=== PATIENT | female | born 1975 | race Caucasian/White ===

== ENCOUNTER → 2017-08-08 | Outpatient (CLI) | payer MEDICARE, OTHER ==
[~2017-08-08] MED LIST: DEPA250T2 PO; LEVO50TA4 PO; LEXA10TA PO; MELO15TA20 PO; RISP4TAB41 PO
--- NOTE | 2017-08-08 12:03 | RADRPT ---
EXAM DATE/TIME: 08/08/2017 11:26 [facility] COMPARISON: No previous studies available for comparison. INDICATIONS : Left foot pain, injured 2 1/2 mos ago MEDICAL HISTORY : fell 2 1/2 mos ago, hurt left foot SURGICAL HISTORY : None. ENCOUNTER: Initial ACUITY: 2 months PAIN SCORE: 7/10 LOCATION: Left foot FINDINGS: Three view examination of the left foot demonstrates no soft tissue swelling, dislocation, or fractur e. The tarsal bones appear intact. The interphalangeal and metatarsophalangeal joints are intact. The calcaneus is intact. Bony mineralization is normal. CONCLUSION: Unremarkable examination of the left foot. Deandre Venegas MD on August 08, 2017 at 12:01 Board Certified Radiologist. This report was verified electronically.
--- NOTE | 2017-08-08 12:03 | RADRPT ---
EXAM DATE/TIME: 08/08/2017 11:24 [facility] COMPARISON: No previous studies available for comparison. INDICATIONS : ordered for a comparison to left. MEDICAL HISTORY : None. SURGICAL HISTORY : None. ENCOUNTER: Initial ACUITY: 1 day PAIN SCORE: 0/10 LOCATION: Right foot FINDINGS: Three view examination of the right foot demonstrates no soft tissue swelling, dislocation, or fractu re except for small bone fragment dorsal to the base of the first metatarsal bone I suspect an old in jury. The tarsal bones appear intact. The interphalangeal and metatarsophalangeal joints are intac t. The calcaneus is intact. Bony mineralization is normal. CONCLUSION: Unremarkable examination of the right foot except for small bone fragment dorsal to the base of the f irst metatarsal bone I suspect an old injury. Deandre Venegas MD on August 08, 2017 at 12:00 Board Certified Radiologist. This report was verified electronically.
== END ==
LOC: HRAD 11:07
PROVIDERS: ATTEND Podiatrist Primary Podiatric Medicine
DX: S92.255A Nondisplaced fracture of navicular [scaphoid] of left foot, initial encounter for closed fracture (principal)
CPT/HCPCS: 73630

== ENCOUNTER 2017-08-27 13:12 | Emergency (ER) | payer SELFPAY ==
[~2017-08-27] VITALS: Ht 170.2 cm; Wt 80.0 kg
[2017-08-27 13:36] VITALS: BP 99/62; PULSE 76; RESP 18; TEMP 98.4; O2SAT 99
--- NOTE | 2017-08-27 13:39 | PD ---
HPI Chief Complaint: Fall Time Seen by Provider: 13:34 Travel History International Travel<30 days: No Contact w/Intl Traveler<30days: No Traveled to known affect area: No History of Present Illness HPI Examined in the presence of a female nurse. This is a 42-year-old female who presents for evaluation after mechanical fall. She reports a prior to arrival she slipped in the shower and fell, landing on her buttocks. She is complaining of pain in her tailbone which is aching and worse with palpation or sitting. She denies any headache or head injury, neck pain, mid or upper back pain, chest pain or shortness of breath, abdominal pain, nausea or vomiting, numbness or tingling or weakness in extremities. She has no other complaints at this time. [facility] Past Medical History Hypertension: Yes Social History Tobacco Use: Yes Allergies-Medications (Allergen,Severity, Reaction): Coded Allergies: No Known Allergies (Unverified , 08/09/17) Reported Meds & Prescriptions Reported Meds & Active Scripts Active Baclofen 10 Mg Tab 10 Mg PO Q8HR 5 Days Reported Diovan (Valsartan) 160 Mg Tab 160 Mg PO DAILY Review of Systems Except as stated in HPI: all other systems reviewed are Neg Physical Exam Narrative GENERAL: Well-developed well-nourished female in no acute distress cervical collar in place laying on backboard. The patient was log rolled off the backboard using spinal precautions. SKIN: Warm and dry. No open wounds, no bruising or soft tissue swelling HEAD: Atraumatic. Normocephalic. EYES: Pupils equal and round. No scleral icterus. No injection or drainage. ENT: No nasal bleeding or discharge. Mucous membranes pink and moist. NECK: Trachea midline. No JVD. CARDIOVASCULAR: Regular rate and rhythm. No murmur appreciated. RESPIRATORY: No accessory muscle use. Clear to auscultation. Breath sounds equal bilaterally. GASTROINTESTINAL: Abdomen soft, non-tender, nondistended. Hepatic and splenic margins not palpable. MUSCULOSKELETAL: No obvious deformities. Tender to palpation along the lower back and sacrum. No bruising or soft tissue swelling. No tenderness to palpation along the cervical or thoracic midline spine. The cervical collar was removed and the patient maintains full range of motion of the neck with no discomfort. NEUROLOGICAL: Awake and alert. No obvious cranial nerve deficits. Motor grossly within normal limits. Normal speech. PSYCHIATRIC: Appropriate mood and affect; insight and judgment normal. Data Data Last Documented VS Vital Signs Date Time Temp Pulse Resp B/P (MAP) Pulse Ox O2 Delivery O2 Flow Rate FiO2 08/27/17 13:46 18 97 Room Air 08/27/17 13:36 98.4 76 99/62 (74) Orders Orders Sacrum And Coccyx (08/27/17 ) Pelvis, Ap Only (Routine) (08/27/17 ) Spine, Lumbar - Ltd (Ap & Lat) (08/27/17 ) Ketorolac Inj (Toradol Inj) (08/27/17 13:45) Tramadol (Ultram) (08/27/17 14:45) Ed Discharge Order (08/27/17 14:48) [facility] Medical Decision Making Medical Screen Exam Complete: Yes Emergency Medical Condition: Yes Medical Record Reviewed: Yes Differential Diagnosis Sacral contusion, fracture, hematoma Narrative Course X-ray imaging of the pelvis, sacrum, lumbar spine have been ordered. Toradol administered for analgesia. The patient continued to complain of pain and therefore a dose of tramadol was administered. The patient was witnessed ambulating with no apparent difficulty during her hospital stay. X-ray imaging is negative. The patient will be discharged with a short course of baclofen. Counseled on the sedating properties of baclofen. Stable for discharge. Diagnosis Primary Impression: Sacral contusion Additional Impression: Lumbar strain Additional Instructions: Take Tylenol or IV Profen for pain. Take ibuprofen with meals. Baclofen as needed. Do not drive or drink alcohol when taking this medication as it May cause sedation. Ice pack to the affected area 15 minutes at a time several times a day may be helpful. Follow-up with primary care physician. Return for any emergent medical conditions. Med/Other Pt SpecificInfo: Prescription(s) given Scripts Baclofen (Baclofen) 10 Mg Tab 10 MG PO Q8HR for 5 Days, TAB 0 Refills Prov: Derrick Elizalde MD 08/27/17 Disposition: 01 DISCHARGE HOME Condition: Stable Shaan Lloyd Aug 27, 2017 13:39
[2017-08-27] MEDS ORDERED: DIOV160T6 PO (13:40)
[2017-08-27] MEDS ORDERED: KETOROLAC TROMETHAMINE 60 MG/2 ML (IM) VIAL IM ONE (13:45)
--- NOTE | 2017-08-27 14:42 | RADRPT ---
EXAM DATE/TIME: 08/27/2017 13:46 [facility] COMPARISON: No previous studies available for comparison. INDICATIONS : Sacrum and coccyx pain post fall. MEDICAL HISTORY : None. SURGICAL HISTORY : None. ENCOUNTER: Initial ACUITY: 1 day PAIN SCORE: 7/10 LOCATION: sacrum and coccyx. FINDINGS: Two-view examination of the sacrum and coccyx demonstrates no evidence of fracture or malalignment. The sacral ala and foramina appear symmetric and intact. The coccyx appears unremarkable. The preve rtebral soft tissues are within normal limits. CONCLUSION: 1. There is no evidence of acute fracture. Kofi Briones MD on August 27, 2017 at 14:40 Board Certified Radiologist. This report was verified electronically.
--- NOTE | 2017-08-27 14:42 | RADRPT ---
EXAM DATE/TIME: 08/27/2017 13:45 [facility] COMPARISON: No previous studies available for comparison. INDICATIONS : Pelvis pain post fall. MEDICAL HISTORY : None. SURGICAL HISTORY : None. ENCOUNTER: Initial ACUITY: 1 day PAIN SCORE: 7/10 LOCATION: Bilateral pelvis. FINDINGS: A single frontal view of the pelvis demonstrates no evidence of fracture. The bony pelvic ring is in tact. Bony mineralization is normal. The soft tissues are intact. CONCLUSION: 1. There is no evidence of acute fracture. oKfi Briones MD on August 27, 2017 at 14:39 Board Certified Radiologist. This report was verified electronically.
--- NOTE | 2017-08-27 14:44 | RADRPT ---
EXAM DATE/TIME: 08/27/2017 13:47 [facility] COMPARISON: No previous studies available for comparison. INDICATIONS : Lower back pain post fall. MEDICAL HISTORY : None. SURGICAL HISTORY : None. ENCOUNTER: Initial ACUITY: 1 day PAIN SCORE: 6/10 LOCATION: lumbar spine. FINDINGS: The vertebral bodies are normal in alignment on the lateral view. There is degenerative disc disease with disc space narrowing and marginal osteophyte formation at the superior endplate of L3. There is no evidence of acute fracture. Bony mineralization is normal. CONCLUSION: 1. There is no evidence of acute fracture. Kofi Briones MD on August 27, 2017 at 14:42 Board Certified Radiologist. This report was verified electronically.
[2017-08-27] MEDS ORDERED: traMADol HCL 50 MG TAB PO ONE (14:45)
[2017-08-27] MEDS ORDERED: BACL10TA PO (14:50)
== END 2017-08-27 14:55 | disposition home or self-care (01) ==
LOC: NEPE 13:12
DX: S30.0XXA Contusion of lower back and pelvis, initial encounter (principal); S39.012A Strain of muscle, fascia and tendon of lower back, initial encounter; I10 Essential (primary) hypertension; W18.2XXA Fall in (into) shower or empty bathtub, initial encounter; Z72.0 Tobacco use; Z79.899 Other long term (current) drug therapy
CPT/HCPCS: 72100; 72170; 72220; 96372; 99284; J1885

== ENCOUNTER 2017-08-29 17:40 | Emergency (ER) | payer SELFPAY ==
[~2017-08-29 17:40] MED LIST changes: +BACL10TA PO; +DIOV160T6 PO
[2017-08-29 17:42] VITALS: BP 163/101; PULSE 95; RESP 18; TEMP 97.8; O2SAT 100
[2017-08-29] MEDS ORDERED: DICL75TA PO (19:42)
[2017-08-29] MEDS ORDERED: AMOX500C PO (19:42)
--- NOTE | 2017-08-29 19:45 | PD ---
HPI Chief Complaint: Oral / Dental Pain or Problem Time Seen by Provider: 19:40 Travel History International Travel<30 days: No Contact w/Intl Traveler<30days: No Traveled to known affect area: No History of Present Illness HPI 42-year-old white female presents to emergency department with complaints of right upper dental pain after bending down on something hard today. She states that she had felt a cracking her tooth followed by pain. Patient states pain is moderate. Worse with chewing. No alleviating factors. No recent illness. Medical record indicates she was just here a couple days ago for a fall. Patient also is on state that she cannot take tramadol or hydrocodone. But she would like something for pain. PFSH Past Medical History Narrative Medical Hypertension Hypertension: Yes Tetanus Vaccination: Unknown ?: Not LMP: menopause Menopausal: Yes Social History Alcohol Use: No Tobacco Use: Yes Allergies-Medications (Allergen,Severity, Reaction): Coded Allergies: No Known Allergies (Unverified , 08/09/17) Reported Meds & Prescriptions Reported Meds & Active Scripts Active Baclofen 10 Mg Tab 10 Mg PO Q8HR 5 Days Reported Diovan (Valsartan) 160 Mg Tab 160 Mg PO DAILY Review of Systems General / Constitutional: No: Fever Eyes: No: Visual changes HENT: Positive: Dental Difficulties, No: Headaches, Sore Throat, Gingival Bleeding Cardiovascular: No: Chest Pain or Discomfort Respiratory: No: Shortness of Breath Gastrointestinal: No: Abdominal Pain Genitourinary: No: Dysuria Musculoskeletal: No: Pain Skin: No Rash Neurologic: No: Weakness Psychiatric: No: Depression Endocrine: No: Polydipsia Hematologic/Lymphatic: No: Easy Bruising Physical Exam Narrative GENERAL: Well-developed, well-nourished in no acute distress. Nontoxic appearing. HEAD: Normocephalic, atraumatic. EYES: Pupils equal round and reactive. Extraocular motions intact. No scleral icterus. No injection or drainage. ENT: TMs clear without erythema. The external auditory canals clear. Nose: clear . Posterior pharynx is pink and moist. No tonsillar edema or exudate. Uvula midline. Airway patent. Patient complains of pain in her right upper maxilla in the area of tooth #4 there is decay and a cavity NECK: Trachea midline.Supple, nontender, moves head freely. No central bony tenderness or spasm. CARDIOVASCULAR: Regular rate and rhythm without murmurs, gallops, or rubs. RESPIRATORY: Clear to auscultation. Breath sounds equal bilaterally. No wheezes , rales, or rhonchi. GASTROINTESTINAL: Abdomen soft, non-tender, nondistended. No hepato-splenomegaly , or palpable masses. No guarding. EXTREMITIES: No clubbing, cyanosis, or edema. No joint tenderness, effusion, or edema noted. BACK: Nontender without deformity or crepitance. No flank tenderness. Data Data Last Documented VS Vital Signs Date Time Temp Pulse Resp B/P (MAP) Pulse Ox O2 Delivery O2 Flow Rate FiO2 08/29/17 17:42 97.8 95 18 163/101 (121) 100 Orders Orders Ed Discharge Order (08/29/17 19:41) [facility] Medical Decision Making Medical Screen Exam Complete: Yes Emergency Medical Condition: Yes Medical Record Reviewed: Yes Differential Diagnosis MDM: Moderate Differential diagnoses: Dental abscess, dental caries, osteitis, cellulitis Narrative Course This is dentalgia Diagnosis Primary Impression: acute dentalgia Patient Instructions: General Instructions Additional Instructions: Rest. [place] gargles. [place] oil on cotton balls. Diclofenac and amoxicillin. follow-up with a dentist as soon as possible. And return to the ER if any problems. Med/Other Pt SpecificInfo: Prescription(s) given Scripts Diclofenac Sodium DR (Diclofenac Sodium DR) 75 Mg Tabdr 75 MG PO BID, #20 TAB 0 Refills Prov: Char Mcclelland DO 08/29/17 Amoxicillin (Amoxicillin) 500 Mg Cap 500 MG PO TID for Infection for 10 Days, CAP 0 Refills Prov: Char Mcclelland DO 08/29/17 Disposition: 01 DISCHARGE HOME Condition: Stable Chaitanya Corbett Aug 29, 2017 19:45
== END 2017-08-29 20:10 | disposition home or self-care (01) ==
LOC: NEPK 17:40
DX: K08.89 Other specified disorders of teeth and supporting structures (principal); K02.9 Dental caries, unspecified; I10 Essential (primary) hypertension; Z72.0 Tobacco use
CPT/HCPCS: 99284

== ENCOUNTER 2017-09-05 18:58 | Emergency (ER) | payer SELFPAY ==
[~2017-09-05 18:58] MED LIST changes: +AMOX500C PO; -DEPA250T2 PO; +DICL75TA PO; -LEVO50TA4 PO; -LEXA10TA PO; -MELO15TA20 PO; -RISP4TAB41 PO
[2017-09-05 19:12] VITALS: BP 125/79; PULSE 98; RESP 16; TEMP 98.7; O2SAT 98
--- NOTE | 2017-09-05 19:53 | RADRPT ---
EXAM DATE/TIME: 09/05/2017 19:30 [facility] COMPARISON: FOOT RIGHT COMPLETE ([id number]), August 08, 2017, 11:24. INDICATIONS : Right foot pain after fall today. MEDICAL HISTORY : None. SURGICAL HISTORY : None. ENCOUNTER: Initial ACUITY: 1 day PAIN SCORE: 8/10 LOCATION: Right foot. FINDINGS: Three view examination of the right foot demonstrates no soft tissue swelling, dislocation, or fractu re. A tiny triangular ossification is seen just to the dorsal side of the first metatarsal on the lat eral projection. This is unchanged. The tarsal bones appear intact. The interphalangeal and metata rsophalangeal joints are intact. The calcaneus is intact. Bony mineralization is normal. CONCLUSION: No acute disease. Kamron Beckwith Jr., MD on September 05, 2017 at 19:49 Board Certified Radiologist. This report was verified electronically.
--- NOTE | 2017-09-05 19:54 | RADRPT ---
EXAM DATE/TIME: 09/05/2017 19:32 [facility] COMPARISON: No previous studies available for comparison. INDICATIONS : Left ankle pain post fall today. MEDICAL HISTORY : None. SURGICAL HISTORY : None. ENCOUNTER: Initial ACUITY: 1 day PAIN SCORE: 8/10 LOCATION: Left ankle. FINDINGS: Two view exam was performed of the left ankle. The bony structures are in normal alignment. No evid ence of fracture, dislocation, or soft tissue swelling. No radiopaque foreign bodies are seen. Bony mineralization is normal. CONCLUSION: Unremarkable limited examination of the left ankle. Kamron Beckwith Jr., MD on September 05, 2017 at 19:50 Board Certified Radiologist. This report was verified electronically.
[2017-09-05] MEDS ORDERED: IBUPROFEN 800 MG TAB PO ONE (20:30)
--- NOTE | 2017-09-05 20:32 | PD ---
HPI Chief Complaint: Musculoskeletal Complaint Time Seen by Provider: 20:11 Travel History International Travel<30 days: No Contact w/Intl Traveler<30days: No Traveled to known affect area: No History of Present Illness HPI 42-year-old white female presents to emergency department for evaluation of a fall. She states that she tripped coming through the threshold of her sliding glass door. She struck her dorsum of the right foot and twisted her left ankle. She states the pain is [id number] in the right foot in moderate to severe in her left ankle. She cannot bear weight on her left foot. She can put some weight on the right foot. She denies any injury to her head, neck or back. Pain is worse with walking. Some relief with elevation. PFSH Past Medical History Narrative Medical Bipolar Diminished Hearing: No Hypertension: Yes LMP: menopausal x 4 years Menopausal: Yes Social History Alcohol Use: No Tobacco Use: Yes Substance Use: No Allergies-Medications (Allergen,Severity, Reaction): Coded Allergies: No Known Allergies (Unverified , 08/29/17) Reported Meds & Prescriptions Reported Meds & Active Scripts Active Diclofenac Sodium DR (Diclofenac Sodium) 75 Mg Tabdr 75 Mg PO BID Amoxicillin 500 Mg Cap 500 Mg PO TID 10 Days Baclofen 10 Mg Tab 10 Mg PO Q8HR 5 Days Reported Diovan (Valsartan) 160 Mg Tab 160 Mg PO DAILY Review of Systems General / Constitutional: No: Fever Eyes: No: Visual changes HENT: No: Headaches, Neck Stiffness, Neck Pain Cardiovascular: No: Chest Pain or Discomfort Respiratory: No: Shortness of Breath Gastrointestinal: No: Abdominal Pain Genitourinary: No: Dysuria Musculoskeletal: Positive: Arthralgias, Limited ROM, Edema, Pain Skin: No Rash Neurologic: No: Weakness Psychiatric: No: Depression Endocrine: No: Polydipsia Hematologic/Lymphatic: No: Easy Bruising Physical Exam Narrative GENERAL: Well-developed, well-nourished in no apparent distress. Nontoxic appearing. HEAD: Normocephalic, atraumatic. EYES: Pupils equal round and reactive. Extraocular motions intact. No scleral icterus. No injection or drainage. ENT: Nose clear. Throat without erythema, tonsillar hypertrophy or exudate. Uvula midline. Airway patent. NECK: Trachea midline. Supple, nontender, moves head freely. No central bony tenderness or spasm. CARDIOVASCULAR: Regular rate and rhythm without murmurs, gallops, or rubs. RESPIRATORY: Clear to auscultation. Breath sounds equal bilaterally. No wheezes , rales, or rhonchi. GASTROINTESTINAL: Abdomen soft, non-tender, nondistended. No hepato-splenomegaly , or palpable masses. No guarding. EXTREMITIES: Examination of the right lower extremity reveals some ecchymosis and swelling over the dorsum of the foot into the distal forefoot and toes. She complains of diffuse tenderness. No pain in the heel, Achilles, ankle, knee or hip. The left lower extremity reveals pain to the anterior talar fibular ligament as well as the anterior talofibular ligament region. No pain in the toes, forefoot, heel, Achilles, knee or hip. Patient is able to bear weight on the right foot but unable to bear weight on the left. She has intact gross sensation with good distal pulses. BACK: Nontender without deformity. No flank tenderness. NEUROLOGICAL: Awake, alert and oriented x 3 .Cranial nerves grossly intact. Motor and sensory grossly within normal limits. Normal speech. Data Data Last Documented VS Vital Signs Date Time Temp Pulse Resp B/P (MAP) Pulse Ox O2 Delivery O2 Flow Rate FiO2 09/05/17 19:12 98.7 98 16 125/79 (94) 98 Orders Orders Ankle, Limited (Ap&Lat) (09/05/17 ) Foot, Complete (Qpg4eas) (09/05/17 ) Ed Discharge Order (09/05/17 20:27) Ice/Cold Pack (09/05/17 20:27) Splint Or Brace Apply/Monitor (09/05/17 20:27) Crutches (09/05/17 20:27) Ibuprofen (Motrin) (09/05/17 20:30) MDM Medical Decision Making Medical Screen Exam Complete: Yes Emergency Medical Condition: Yes Medical Record Reviewed: Yes Interpretation(s) Last 24 hours Impressions Foot X-Ray 09/05/17 0000 Signed Impressions: Service Date/Time: Tuesday, September 05, 2017 19:30 - CONCLUSION: No acute disease. Kamron Beckwith Jr., MD Ankle X-Ray 09/05/17 0000 Signed Impressions: Service Date/Time: Tuesday, September 05, 2017 19:32 - CONCLUSION: Unremarkable limited examination of the left ankle. Kamron Beckwith Jr., MD Differential Diagnosis MDM: High Differential diagnoses: Fracture, sprain, strain, dislocation, contusion, neurovascular injury Narrative Course X-ray of the right foot is negative for fracture. X-ray of the left ankle is negative for fracture. Patient's given Leonard wrap's, ice pack, crutches, Motrin 800 mg by mouth. This is right foot sprain, left ankle sprain, fall Diagnosis Primary Impression: right foot sprain Additional Impressions: left ankle sprain fall Patient Instructions: General Instructions Additional Instructions: Rest. Elevation. Ice packs for the next 3 days. Leonard wrap and crutches. No weight-bearing and then progress to weight-bearing as tolerated. Medications as directed Follow-up with an orthopedist or your doctor in one week. Return to the ER if any problems Med/Other Pt SpecificInfo: Prescription(s) given Disposition: 01 DISCHARGE HOME Condition: Stable Chaitanya Corbett Sep 05, 2017 20:32
[2017-09-05] MEDS ORDERED: DICL75TA PO (20:33)
== END 2017-09-05 21:01 | disposition home or self-care (01) ==
LOC: NEPK 18:58
DX: S93.601A Unspecified sprain of right foot, initial encounter (principal); S93.402A Sprain of unspecified ligament of left ankle, initial encounter; I10 Essential (primary) hypertension; W01.0XXA Fall on same level from slipping, tripping and stumbling without subsequent striking against object, initial encounter; Z72.0 Tobacco use
CPT/HCPCS: 73600; 73630; 99283; E0113

== ENCOUNTER 2017-09-17 16:24 | Emergency (ER) | payer SELFPAY ==
[~2017-09-17] VITALS: Ht 170.2 cm; Wt 85.0 kg
[2017-09-17 16:32] VITALS: BP 122/82; PULSE 91; RESP 16; TEMP 98; O2SAT 100
[2017-09-17 16:36] VITALS: RESP 16; O2SAT 100
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
[2017-09-17] MEDS ORDERED: LORazepam 2 MG/ML VIAL IV PUSH ONE (16:45)
[2017-09-17] MEDS ORDERED: ASPIRIN 81 MG CHEW TAB PO ONE (16:45)
[2017-09-17] MEDS ORDERED: SODIUM CHLORIDE 0.9% FLUSH 10 ML FLUSH IVF PRN (16:45)
--- NOTE | 2017-09-17 17:08 | RADRPT ---
EXAM DATE/TIME: 09/17/2017 16:50 [place] COMPARISON: No previous studies available for comparison. INDICATIONS : Short of breath, pain to center of chest. MEDICAL HISTORY : None. SURGICAL HISTORY : None. ENCOUNTER: Initial ACUITY: 1 day PAIN SCORE: 5/10 LOCATION: Bilateral chest FINDINGS: A single view of the chest demonstrates the lungs to be symmetrically aerated without evidence of mas s, infiltrate or effusion. The cardiomediastinal contours are unremarkable. Osseous structures are intact. CONCLUSION: No evidence of acute cardiopulmonary disease. Abel Finn MD on September 17, 2017 at 17:05 Board Certified Radiologist. This report was verified electronically.
[2017-09-17 17:31] LABS: AUTOMATED NEUTROPHIL # 6.9 TH/MM3 (1.8-7.7); BASOPHIL % 0.4 % (0.0-2.0); EOSINOPHIL % 0.4 % (0.0-4.0); HEMATOCRIT 45.2 % (35.0-46.0); HEMOGLOBIN 15.4 GM/DL (11.6-15.3); LYMPH % 21.5 % (9.0-44.0); LYMPHOCYTE # 2.1 TH/MM3 (1.0-4.8); MEAN CELL VOLUME 90.4 FL (80.0-100.0); MEAN CORPUSCULAR HEMOGLOBIN 30.8 PG (27.0-34.0); MEAN PLATELET VOLUME 8.8 FL (7.0-11.0); MONO % 6.3 % (0.0-8.0); MONOCYTE # 0.6 TH/MM3 (0-0.9); NEUT % 71.4 % (16.0-70.0); PLATELET COUNT 286 TH/MM3 (150-450); RED CELL DISTRIBUTION WIDTH 13.3 % (11.6-17.2); WHITE BLOOD COUNT 9.6 TH/MM3 (4.0-11.0)
[2017-09-17 17:41] LABS: INTERNATIONAL NORMALIZED RATIO 1.1 RATIO; PROTHROMBIN TIME - PATIENT 11.1 SEC (9.8-11.6)
[2017-09-17 18:00] VITALS: BP 119/80; PULSE 81; RESP 16; O2SAT 96
[2017-09-17 18:01] LABS: ALBUMIN 4.4 GM/DL (3.4-5.0); ALKALINE PHOSPHATASE 58 U/L (45-117); ALT (GPT) 17 U/L (10-53); AST (GOT) 16 U/L (15-37); BICARBONATE 21.7 MEQ/L (21.0-32.0); BLOOD UREA NITROGEN 17 MG/DL (7-18); CHLORIDE 107 MEQ/L (98-107); CREATININE 0.64 MG/DL (0.50-1.00); GLOMERULAR FILTRATION RATE 103 ML/MIN (>89); GLUCOSE,RANDOM 81 MG/DL (74-106); MAGNESIUM 2.1 MG/DL (1.5-2.5); SODIUM (NA) 140 MEQ/L (136-145); TOTAL BILIRUBIN ADULT 0.5 MG/DL (0.2-1.0); TROPONIN I LESS THAN 0.02 NG/ML (0.02-0.05)
[2017-09-17] MEDS ORDERED: REME15TA PO (18:15)
[2017-09-17] MEDS ORDERED: CYMB60CA PO (18:15)
[2017-09-17] MEDS ORDERED: RISP3 PO (18:15)
[2017-09-17] MEDS ORDERED: DEPA250T2 PO (18:15)
--- NOTE | 2017-09-18 18:51 | EKG ---
Date Performed: 09/17/2017 Time Performed: 16:36:57 PTAGE: 42 years EKG: Sinus rhythm NORMAL ECG NO PREVIOUS TRACING DOCTOR: Jose Manuel Goodwin Interpretating Date/Time 09/18/2017 18:50:08
== END 2017-09-17 19:39 | disposition home or self-care (01) ==
LOC: NEPC 16:24
DX: F41.9 Anxiety disorder, unspecified (principal); F32.9 Major depressive disorder, single episode, unspecified; R07.9 Chest pain, unspecified; Z72.0 Tobacco use; Z79.899 Other long term (current) drug therapy
CPT/HCPCS: 71045; 80053; 82550; 83735; 84484; 85025; 85610; 85730; 93005; 96374; 99285; J2060